=== PATIENT | male | born 1990 | race Caucasian/White ===

== ENCOUNTER 2017-11-27 09:26 | Outpatient (CLI) | payer OTHER ==
--- NOTE | 2017-11-28 00:02 | Cat Scan Report ---
FINAL REPORT EXAM: CT UPPER EXTREM RT W CON HISTORY: TRAUMA TO RIGHT HAND TECHNIQUE: Routine axial imaging was obtained of the right upper extremity extending from the midshaft of the radius through the entire hand following the intravenous injection of iodinated contrast. Sagittal coronal reconstructions were reviewed as well. FINDINGS: There is no evidence of fracture or dislocation. There is no evidence of arthritic changes in the wrist. The skeletal structures otherwise reveal benign bone island in the capitate. There is no evidence of localized soft tissue swelling or foreign body. There is no evidence of abnormal fluid collection in any compartment of the wrist or hand. There is no evidence of abnormal enhancement. IMPRESSION: Within normal limits.
== END 2017-11-27 09:27 | disposition home or self-care (01) ==
LOC: CT 09:26
PROVIDERS: ATTEND Family Medicine
DX: S69.91XD Unspecified injury of right wrist, hand and finger(s), subsequent encounter (principal); M79.89 Other specified soft tissue disorders; X58.XXXD Exposure to other specified factors, subsequent encounter
CPT/HCPCS: 73201; Q9967